=== PATIENT | female | born 1990 | race African-American/Black ===

== ENCOUNTER 2021-01-30 18:03 | Emergency (ER) | payer MEDICAID ==
[~2021-01-30] VITALS: Ht 157.5 cm; Wt 58.0 kg
[2021-01-30 18:07] VITALS: BP 115/75
[2021-01-30] MEDS ORDERED: ONDANSETRON 4MG ODT PO ONE (22:00)
== END 2021-01-30 22:14 | disposition left against medical advice (07) ==
LOC: ER 18:03
DX: R11.2 Nausea with vomiting, unspecified (principal)
CPT/HCPCS: 81025; 93005; 99283